=== PATIENT | female | born 1950 | race Caucasian/White ===

== ENCOUNTER 2017-04-11 09:30 | Emergency (ER) | payer MEDICARE | END 2017-04-11 11:41 | disposition home or self-care (01) | LOC: ERS 09:30 | DX: J34.0 Abscess, furuncle and carbuncle of nose (principal); F32.9 Major depressive disorder, single episode, unspecified; Z16.29 Resistance to other single specified antibiotic | CPT/HCPCS: 99283 ==

== ENCOUNTER 2018-02-16 08:23 | Emergency (ER) | payer MEDICARE ==
[2018-02-16] MEDS ORDERED: Lidocaine 1% w/Epinephrine 1:100K 20 ML VIAL ONE (09:43)
[2018-02-16] MEDS ORDERED: Lidocaine 1% PF 5 ML VIAL ONE (10:24)
[2018-02-16] MEDS ORDERED: cefTRIAXone\\ROCEPHIN 1 GM VIAL ONE (10:24)
== END 2018-02-16 10:58 | disposition home or self-care (01) ==
LOC: ERS 08:23
DX: L02.31 Cutaneous abscess of buttock (principal); F32.9 Major depressive disorder, single episode, unspecified
CPT/HCPCS: 10060; 96372; J0696; J2001

== ENCOUNTER 2018-12-14 16:25 | Emergency (ER) | payer MEDICARE ==
[2018-12-14] MEDS ORDERED: Lidocaine 1% w/Epinephrine 1:100K 20 ML VIAL ONE ×2 (18:37→20:25)
[2018-12-14] MEDS ORDERED: Adacel (T-DAP) 0.5 ML SYRINGE ONE (18:55)
[2018-12-14] MEDS ORDERED: Bupivacaine 0.5% 10 ML VIAL ONE (19:03)
[2018-12-14] MEDS ORDERED: CEFAZOLIN 1 GM VIAL ONE (19:13)
== END 2018-12-14 21:20 | disposition home or self-care (01) ==
LOC: ERS 16:25
DX: S81.852A Open bite, left lower leg, initial encounter (principal); F32.9 Major depressive disorder, single episode, unspecified; W54.0XXA Bitten by dog, initial encounter
CPT/HCPCS: 12002; 90471; 90715; J0690; J2001; J3490